=== PATIENT | male | born 1985 | race Two or more races ===

== ENCOUNTER 2025-05-17 00:20 | Emergency (ER) | payer OTHER, MEDICAID, SELFPAY ==
[2025-05-17 00:21] VITALS: BMI 25.1
[2025-05-17 00:31] VITALS: BP 149/84; PULSE 63; RESP 18; TEMP 37.2; O2SAT 99
--- NOTE | 2025-05-17 00:40 | XR_ITS ---
Examination: CT abdomen and pelvis without contrast. Coronal 3-D reconstructions. Sagittal 2-D reconstructions. Date and time of exam:May 17, 2025 0315 hours Comparison January 12, 2021 INDICATIONS: Onset left-sided flank pain today. CTDI: vol (mGy): 9.08. DLP: (mGycm): 402. Technique: Axial images of the abdomen have been obtained, 3 mm slice thickness Intravenous contrast material has not been administered. Low dose protocols were performed. One or more of the following dose reduction techniques were used; automated exposure control, adjustment of the mA and/or KV according to patient size, use of iterative reconstruction technique. Findings: No focal liver or splenic lesions Contracted gallbladder No pancreatic mass Mild left hydronephrosis secondary to 3 mm mid left ureteral calculus No bowel obstruction Normal appendix No bladder mass or bladder calculi IMPRESSION: Mild left hydronephrosis secondary to 3 mm mid left ureteral calculus
[2025-05-17 01:18] LABS: Basophils # (Auto) 0.0 Thou/mm3 (0.0-0.2); Basophils % (Auto) 0 % (0-2.5); Eosinophils # (Auto) 0.1 Thou/mm3 (0.0-0.5); Eosinophils % (Auto) 1 % (0-10); Hematocrit 45.2 % (41.0-53.0); Hemoglobin 15.0 g/dL (13.5-16.0); Immature Granulocytes Auto 0.06 Thou/mm3 (0.00-0.00); Lymphocytes # (Auto) 2.0 Thou/mm3 (1.0-4.8); Lymphocytes % (Auto) 20 % (10-50); Mean Corpuscular HGB Conc 33.2 g/dl (31.0-37.0); Mean Corpuscular Hemoglobin 28.4 pg (25.0-35.0); Mean Corpuscular Volume 86 fL (80-100); Monocytes # (Auto) 0.6 Thou/mm3 (0.0-0.8); Monocytes % (Auto) 6 % (0-12); Neutrophils # (Auto) 7.5 Thou/mm3 (1.8-7.7); Neutrophils % (Auto) 73 % (37-80); Nucleated Red Blood Cell # 0.00 Thou/mm3 (0.00-0.00); Nucleated Red Blood Cell % 0 /100 WBC (0); Platelet Count 222 Thou/mm3 (140-440); RDW Standard Deviation 41.7 fL (35.1-43.9); Red Blood Count 5.28 Miln/mm3 (4.50-5.90); White Blood Count 10.3 Thou/mm3 (3.8-10.6)
[2025-05-17 01:36] LABS: Alanine Aminotransferase 87 U/L (10-49); Albumin, Serum 4.4 gm/dL (3.5-5.0); Albumin/Globulin Ratio 1.7 (1.2-2.2); Alkaline Phosphatase 137 U/L (46-116); Anion Gap 13 (7-16); Aspartate Amino Transferase 41 U/L (0-34); BUN/Creatinine Ratio 13 Ratio (12-20); Bilirubin,Total 0.2 mg/dL (0.3-1.2); Blood Urea Nitrogen 12 mg/dL (9-23); Calcium 10.0 mg/dL (8.3-10.6); Calcium (Corrected) 10.0 mg/dL (8.5-10.1); Carbon Dioxide 24.1 mMol/L (20.0-31.0); Chloride 106 mMol/L (98-107); Creatinine (Component) 0.9 mg/dL (0.6-1.3); Estimated Creatinine Clearance 110.2 mL/min (>60); Globulin 2.6 gm/dL (2.3-3.5); Glucose 184 mg/dL (74-106); Lipase 25 U/L (12-53); Osmolality,Calculated 289 (275-295); Potassium 4.0 mMol/L (3.4-5.1); Sodium 143 mMol/L (136-145); Total Protein 7.0 gm/dL (5.7-8.2); eGFR > 60 See Note
--- NOTE | 2025-05-17 04:24 | PRELIM_ITS ---
CT scan of the abdomen and pelvis without intravenous contrast (axial sections with sagittal and coronal reformats) May 17, 2025 0319 hours Clinical History: Kidney stone. Comparison: No prior study is available for comparison. Findings: A small hypodense lesion is noted in the liver, which is too small to characterize. There is a 3 mm obstructing calculus in the left proximal ureter (coronal image 74/147) causing moderate left hydroureteronephrosis and periureteric/perinephric fat stranding. The gallbladder, pancreas, spleen, right kidney and adrenals are unremarkable on this noncontrast study. No evidence of bowel obstruction. The appendix is within normal limits (coronal images [id number]). There is no mesenteric or retroperitoneal adenopathy. The urinary bladder is partially distended and shows mild wall thickening; possibility of cystitis cannot be excluded. There is no free fluid or free air. There are bilateral inguinal hernia containing fat. The osseous structures are unremarkable. Right basilar dependent atelectasis is present. Please note that evaluation of soft tissue/vascular structures and bowel loops is limited due to absence of IV and oral contrast. Impression: 1. A 3 mm obstructing calculus in the left proximal ureter causing moderate left hydroureteronephrosis. 2. Partially distended urinary bladder with mild wall thickening; possibility of cystitis cannot be excluded. 3. Other findings as described above. Suggest clinical correlation and follow up accordingly. Report Electronically Signed By: Steven De La Cruz 05/17/2025 4:24:12 AM [EST]
--- NOTE | 2025-05-17 04:34 | EDNOTE_ITS ---
ED Abdominal Pain RME/HPI General Chief Complaint: Abdominal Pain Stated complaint: L FLANK PAIN Time seen by provider: 05/17/25 00:23 Arrival date/time: 05/17/25 00:20 This is a case of 39-year-old male with history of kidney stone came in in the emergency room due to left flank pain radiating to the left lower abdomen for 1 day associated with nausea vomiting persistence of the symptoms this patient decided to sought consult here in the emergency Limitations: no limitations Related Data Previous Rx's ?Medication ?Instructions ?Recorded ondansetron 4 mg disintegrating 4 mg PO Q8H PRN nausea and 08/12/23 tablet vomiting #20 tabs cyclobenzaprine 10 mg tablet 10 mg PO BID PRN muscle s pasm #20 10/20/23 tabs ibuprofen 800 mg tablet 800 mg PO Q8H PRN pain #30 t abs 10/20/23 cephalexin 500 mg capsule 500 mg PO QID #40 caps 05/17 hydrocodone 5 mg-acetaminophen 325 1 tab PO Q6H PRN pa in #20 tabs 05/17/25 mg tablet ondansetron 4 mg disintegrating 4 mg PO Q8H PRN nausea and 05/17/25 tablet vomiting #20 tabs tamsulosin 0.4 mg capsule (Flomax) 0.4 mg PO QDAY 10 d ays #10 caps 05/17/25 Allergies Allergy/AdvReac Type Severity Reaction Status Date / Time No Known Allergies Allergy Verified 05/17/25 00:24 Review of Systems Review of Systems Systems Reviewed: All systems reviewed, normal except as documented Constitutional Constitutional: Reports system reviewed and no additional complaints, except as documented, Reports as per HPI, Denies chills and Denies fever(s) ENT Ears, Nose, Mouth, and Throat: Denies dysphagia and Denies odynophagia Cardiovascular Cardiovascular: Reports system reviewed and no additional complaints, except as documented, Reports as per HPI, Denies chest pain and Denies dyspnea Respiratory Respiratory: Reports system reviewed and no additional complaints, except as documented, Reports as per HPI and Denies dyspnea Gastrointestinal Gastrointestinal: Reports system reviewed and no additional complaints, except as documented, Reports as per HPI, Reports abdominal pain, Denies belching, Denies bloating, Denies change in bowel habits, Denies change in stool character, Denies coffee ground emesis, Denies constipation, Denies cramping, Denies diarrhea, Denies dyspepsia, Denies dysphagia, Denies early satiety, Denies excessive flatus, Denies fecal incontinence, Denies heartburn, Denies hematemesis, Denies hematochezia, Denies loose stools, Denies melena, Reports nausea, Denies odynophagia, Denies tenesmus and Reports vomiting Genitourinary Genitourinary: Reports system reviewed and no additional complaints, except as documented and Reports as per HPI Musculoskeletal Musculoskeletal: Reports system reviewed and no additional complaints, except as documented and Reports as per HPI Neurologic Neurologic: Reports system reviewed and no additional complaints, except as documented and Reports as per HPI Past Medical History Past Medical History NEUROLOGIC: Negative Neurological Disorders or Seizures CARDIAC: Negative Cardiac Disorders or Congestive Heart Failure RESPIRATORY: Negative Chronic Obstructive Pulmonary Disease (COPD) GASTROINTESTINAL: Negative Gastrointestinal Disorders GENITOURINARY: Negative Genitourinary Disorders or Renal Disease MUSCULOSKELETAL: Negative Musculoskeletal Disorders ENDOCRINE: Negative Endocrine Disorders, Diabetes Mellitus Type 1 or Diabetes Mellitus Type 2 HEMATOLOGIC: Negative Blood Disorders OTHER HISTORY: Negative Autoimmune Disease, Shingles, Blood Transfusions, Anesthesia Reactions, MRSA, Clostridium Difficile or Cancer Family History FAMILY HISTORY: Negative Family Psychiatric Problems, Family Respiratory Disorders, Family Cardiac Disorders, Family Gastrointestinal Problems, Family Cancer, Family Surgery or Family Anesthesia Reaction Social History SMOKING STATUS: Never smoker ED Exam General Limitations: Present no limitations General appearance: Present alert, in no apparent distress and other (Patient is awake alert oriented not in distress nontoxic looking well-hydrated well- nourished) Head Head exam: Present atraumatic, normocephalic and normal inspection Eye Eye exam: Present normal appearance, PERRL and EOMI ENT ENT exam: Present normal exam, normal oropharynx and mucous membranes moist Neck Neck exam: Present normal inspection, full ROM and trachea midline; Absent tenderness, meningismus, lymphadenopathy or thyromegaly Chest Chest inspection: Present normal inspection and symmetric chest wall rise; Absent tenderness, rash or abscess Respiratory Respiratory exam: Present normal lung sounds bilaterally; Absent respiratory distress, wheezes, stridor, accessory muscle use or prolonged expiratory phase Cardiovascular Cardiovascular exam: Present regular rate, normal rhythm and normal heart sounds; Absent bradycardia, tachycardia, irregular rhythm, systolic murmur or diastolic murmur Abdominal Exam Abdominal exam: Present soft, tenderness (Mild tenderness in the left lower quadrant and left lower), normal bowel sounds and other (No CVA tenderness no bladder tenderness); Absent distention, guarding, rebound, rigidity, diminished bowel sounds, hyperactive bowel sounds, hypoactive bowel sounds, organomegaly, trauma, psoas sign, obturator sign, Betancourt's sign, Rovsing's sign, tenderness at McBurney's Point or hernia Extremities Exam Extremities exam: Present normal inspection and full ROM Back Exam Back exam: Present normal inspection and full ROM Neurological Exam Neurological exam: Present alert, oriented X3, CN II-XII intact, normal gait and reflexes normal; Absent motor sensory deficit Psychiatric Psychiatric exam: Present normal affect and normal mood Skin Skin exam: Present warm, dry, intact and normal color Course Quality Measures none Orders Category Date Time Status Insert IV NOW Care 05/17/25 05:[address] abdomen pelvis wo con Stat Exams 05/17/25 00:40 Completed CBC Stat Lab 05/17/25 01:02 Completed Comprehensive Metabolic Panel Stat Lab 05/17/25 01:02 Completed Lipase Stat Lab 05/17/25 01:02 Completed Ketorolac Inj [Toradol Inj] Med 05/17/25 04:30 Discontinued 30 mg IVP X1 ONE Morphine Inj Med 05/17/25 04:30 Discontinued 4 mg IVP X1 ONE Ondansetron Inj [Zofran Inj] Med 05/17/25 04:31 Discontinued 4 mg IVP X1 ONE Sodium Chloride 0.9% 1000 ml [Ns] 1,000 ml Med 05/17/25 04:30 Discontinued IV 999 mls/hr Tamsulosin HCl [Flomax] Med 05/17/25 04:30 Discontinued 0.4 mg PO X1 ONE Vital Signs Vital signs: Vital Signs Temperature 99.0 F 05/17/25 00:31 Pulse Rate 63 05/17/25 00:31 Respiratory Rate 18 05/17/25 00:31 Blood Pressure 149/84 H 05/17/25 00:31 Pulse Oximetry (%) 99 05/17/25 00:31 Oxygen Delivery Method Room Air 05/17/25 00:31 Patient is afebrile not tachycardic not tachypneic BP stable not hypoxic oxygen saturation 99% in room air Abdominal Pain MDM MDM Narrative MDM Narrative:: This is a case of 39-year-old male with history of kidney stone came in in the emergency room due to left flank pain radiating to the left lower abdomen for 1 day associated with nausea vomiting persistence of the symptoms this patient decided to sought consult here in the emergency physical examination patient is awake alert oriented not in distress not toxic looking well-hydrated well- nourished patient abdominal exam noted mild tenderness on the left lower quadrant and left flank no guarding no rebound no rigidity negative CVA tenderness no bladder tenderness at the time of exam no signs and symptoms of sepsis dehydration or acute abdomen blood exam showed CBC no leukocytosis no anemia kidney and liver function is normal no electrolyte imbalance urinalysis is normal CT scan showed a mild hydronephrosis with secondary to 3 mm left ureteral calculus based on my physical examination I do not think patient needs to be admitted nor transfer the stone is small and not infected thus patient was given a bolus of normal saline Flomax morphine and Toradol for pain and Zofran for vomiting after 1 hour patient was reassessed patient condition markedly improved pain was resolved no recurrence of vomiting patient will be discharged with [place] for pain Zofran for vomiting and cephalexin for possible infection I have a long discussion with the patient she was advised to follow-up with PCP to be referred to urologist for further evaluation and treatment of kidney stone he is advised if not seen in 2 days return to the emergency room immediately or call 911 return precaution to ER was also advised Patient was discharged with comfortable condition walking with stable gait. Patient verbalized no further complains explained diagnosis and answered patient question. Patient is comfortable with the proposed management plan including the need to follow up with his/her primary care physician and any specialist if applicable Discussed patient for any urgent condition or worsening sx, He/She needed to go to emergency room immediately or call 911. Patient acknowledge the responsibility to follow up as instructed and to monitor her/his symptoms. For any persistence of the symptoms for more than 3-5 days return precaution advised. Discussed the result of the test and was given printed discharge instruction Patient data External records reviewed:: [facility] previous records Clinical information provided by:: patient and family Social determinants that could affect healthcare access:: none Patient has the following chronic illnesses:: None How is presenting disease/condition affected by chronic disease/condition?: no chronic disease Evaluation data The following diagnostics were reviewed and interpreted by me:: lab results and radiology exam(s) Lab and/or radiology exams considered but not ordered:: Reviewed Interpretation Summary: Reviewed Medications / Prescriptions Medications or Prescriptions considered but not ordered:: Given Medication administrations:: Medication Administration History Discontinued Medications Sodium Chloride (Ns) 1,000 mls @ 999 mls/hr IV .Q1H1M ONE Stop: 05/17/25 05:30 Last Infusion: 05/17/25 05:28 Dose: Infused Documented By: Admin: 05/17/25 05:08 Dose: 999 mls/hr Documented By: BD Ketorolac Tromethamine (Ketorolac Inj 30 Mg/Ml Vial) 30 mg IVP X1 ONE Stop: 05/17/25 04:31 Last Admin: 05/17/25 05:07 Dose: 30 mg Documented By: BD Morphine Sulfate (Morphine Sulf Inj 10 Mg/Ml Vial) 4 mg IVP X1 ONE Stop: 05/17/25 04:31 Last Admin: 05/17/25 05:08 Dose: 4 mg Documented By: BD Ondansetron HCl (Ondansetron Inj 2 Mg/Ml Inj 2 Ml) 4 mg IVP X1 ONE; Protocol Stop: 05/17/25 04:32 Last Admin: 05/17/25 05:07 Dose: 4 mg Documented By: BD Tamsulosin HCl (Tamsulosin Hcl 0.4 Mg Capsule) 0.4 mg PO X1 ONE Stop: 05/17/25 04:31 Last Admin: 05/17/25 05:09 Dose: 0.4 mg Documented By: BD Given Consultations Consultation(s) initiated? (list below): No Diagnosis Differential diagnosis abdominal pain: abdominal pain, acute appendicitis, calculus of kidney and diverticulitis Most likely diagnosis given after review of the tests above:: Ureteral stone with hydronephrosis Admission Indicated Admission indicated?: not indicated Explain why admission is indicated or not indicated:: Not indicated Admission Request Was there a request for admission?: No Admission Attestation Admission request attestation: Not indicated Disposition Plan Disposition Plan: Discharge Discharge Attestation Discharge Attestation: The patient and all family members were given an opportunity to ask questions and understood the discharge instructions. Discharge instructions specifically effects, indications for sooner follow up or return to the emergency department, and the expected course of current diagnosis. Patient condition: Stable Discharge Plan Plan Patient Disposition: HOME (Self Care) Patient condition on transfer: Stable Prescriptions/Referrals Prescriptions/Med Rec: New hydrocodone-acetaminophen 5-325 mg tablet 1 tab PO Q6H MDD max4 tabs per day PRN (Reason: pain) Qty: 20 0RF tamsulosin [Flomax] 0.4 mg capsule 0.4 mg PO QDAY 10 Days Qty: 10 0RF ondansetron 4 mg tablet,disintegrating 4 mg PO Q8H PRN (Reason: nausea and vomiting) Qty: 20 0RF cephalexin 500 mg capsule 500 mg PO QID Qty: 40 0RF No Action ondansetron 4 mg tablet,disintegrating 4 mg PO Q8H PRN (Reason: nausea and vomiting) Qty: 20 0RF cyclobenzaprine 10 mg tablet 10 mg PO BID PRN (Reason: muscle spasm) Qty: 20 0RF ibuprofen 800 mg tablet 800 mg PO Q8H PRN (Reason: pain) Qty: 30 0RF Referrals: Leanna Sam MD [Physician] - 05/18/25 (For further evaluation and treatment of your ureteral stone with hydroureteronephrosis) Nikko Sage PA-C [Primary Care Provider] - In 1 week Problem List Clinical Impression: Ureteral stone, Hydroureteronephrosis Patient/Caregiver Discharge Instructions Education Materials: Understanding Kidney Stones, Kidney Stones Your Evaluation, Treating Kidney Stones ..., Understanding Hydronephrosis Additional Instructions: Follow-up with your primary care physician in 2 days for reevaluation and to be referred to urologist for further evaluation and treatment of ureteral stone with hydroureteronephrosis recurrence persistent worsening symptoms or any emergent concerns such as fever chills flank pain abdominal pain unable to urinate or blood in the urine return to the emergency room immediately or call 911 take your medication as directed finish the course of antibiotic increase water intake keep hydrated Print Language: Swazi Stand Alone Forms: [facility] Award Info., Patient Portal Info Letter PA/JANINE Supervising Physician PA/JANINE Supervising Physician: Dr Celeste
[2025-05-17] MEDS: KETOROLAC INJ 30 MG/ML VIAL IVP (05:07)
[2025-05-17] MEDS: ONDANSETRON INJ 2 MG/ML INJ 2 ML 4 MG IVP (05:07)
[2025-05-17] MEDS: MORPHINE SULF INJ 10 MG/ML VIAL 4 MG IVP (05:08)
[2025-05-17] MEDS: SODIUM CHLORIDE 0.9% 1000 ML 1,000 ML 999 ML IV (05:08)
[2025-05-17] MEDS: TAMSULOSIN HCL 0.4 MG CAPSULE PO (05:09)
== END 2025-05-17 05:34 | disposition home or self-care (01) ==
PROVIDERS: Nurse Practitioner Family; Emergency Provider Family Medicine; PCP Physician Assistant
DX: N13.2 Hydronephrosis with renal and ureteral calculous obstruction (principal); Z87.442 Personal history of urinary calculi
CPT/HCPCS: 36415; 74176; 80053; 81001; 83690; 85025; 96374; 96375; 99283; J1885; J2270; J2405; J7030; A9270

== ENCOUNTER → 2025-07-24 | Outpatient (CLI) | payer BC, MEDICAID, SELFPAY ==
--- NOTE | 2025-07-24 10:45 | XR_ITS ---
Examination: Shoulder, left, 3 views Technique: Shoulder AP internal rotation, AP external rotation, Y view shoulder, 3 views Exam date and time : July 24, 2025, 1055 hours INDICATIONS: Left shoulder surgery 2 years ago followed by shoulder pain and popping FINDINGS: Advanced narrowing glenohumeral joint No shoulder fracture or dislocation No calcific tendinitis IMPRESSION: Advanced narrowing glenohumeral joint
[2025-07-24 10:57] LABS: Basophils # (Auto) 0.0 Thou/mm3 (0.0-0.2); Basophils % (Auto) 1 % (0-2.5); Eosinophils # (Auto) 0.1 Thou/mm3 (0.0-0.5); Eosinophils % (Auto) 1 % (0-10); Hematocrit 50.2 % (41.0-53.0); Hemoglobin 16.8 g/dL (13.5-16.0); Immature Granulocytes Auto 0.01 Thou/mm3 (0.00-0.00); Lymphocytes # (Auto) 2.3 Thou/mm3 (1.0-4.8); Lymphocytes % (Auto) 36 % (10-50); Mean Corpuscular HGB Conc 33.5 g/dl (31.0-37.0); Mean Corpuscular Hemoglobin 28.2 pg (25.0-35.0); Mean Corpuscular Volume 84 fL (80-100); Monocytes # (Auto) 0.5 Thou/mm3 (0.0-0.8); Monocytes % (Auto) 7 % (0-12); Neutrophils # (Auto) 3.5 Thou/mm3 (1.8-7.7); Neutrophils % (Auto) 56 % (37-80); Nucleated Red Blood Cell # 0.00 Thou/mm3 (0.00-0.00); Nucleated Red Blood Cell % 0 /100 WBC (0); Platelet Count 223 Thou/mm3 (140-440); RDW Standard Deviation 40.3 fL (35.1-43.9); Red Blood Count 5.95 Miln/mm3 (4.50-5.90); White Blood Count 6.4 Thou/mm3 (3.8-10.6)
[2025-07-24 11:07] LABS: Glucose Estimated Average 128 mg/dL (80-131); Hemoglobin A1C 6.1 % Hgb (4.8-6.0)
[2025-07-24 11:21] LABS: Folate 15.73 ng/mL (>5.38); Vitamin B12 464 pg/mL (211-911); Vitamin D 25 Hydroxy Total 25.2 ng/mL (7.3-40.2)
[2025-07-24 11:22] LABS: Alanine Aminotransferase 79 U/L (10-49); Albumin, Serum 5.2 gm/dL (3.5-5.0); Albumin/Globulin Ratio 1.9 (1.2-2.2); Alkaline Phosphatase 92 U/L (46-116); Anion Gap 10 (7-16); Aspartate Amino Transferase 40 U/L (0-34); BUN/Creatinine Ratio 16 Ratio (12-20); Bilirubin,Total 0.7 mg/dL (0.3-1.2); Blood Urea Nitrogen 14 mg/dL (9-23); Calcium 9.7 mg/dL (8.3-10.6); Calcium (Corrected) 9.7 mg/dL (8.5-10.1); Carbon Dioxide 27.0 mMol/L (20.0-31.0); Cardiac Risk Estimate 4.6 RATIO (4.0-6.7); Chloride 106 mMol/L (98-107); Cholesterol 237 mg/dL (132-200); Creatinine (Component) 0.9 mg/dL (0.6-1.3); Free T4 (Free Thyroxine) 1.33 ng/dL (0.89-1.76); Globulin 2.7 gm/dL (2.3-3.5); Glucose 106 mg/dL (74-106); HDL Cholesterol 52 mg/dL (40-60); LDL Cholesterol,Calculated 166 mg/dL (0-130); Osmolality,Calculated 285 (275-295); Potassium 4.4 mMol/L (3.4-5.1); Sodium 143 mMol/L (136-145); Thyroid Stimulating Hormone 0.85 uIU/mL (0.55-4.78); Total Protein 7.9 gm/dL (5.7-8.2); Triglycerides 94 mg/dL (30-150); eGFR > 60 See Note
[2025-07-24 11:43] LABS: Collection Type, Urine Clean Catch
[2025-07-24 12:31] LABS: Bacteria,Urine Rare; Bilirubin,Urine Negative (Negative); Blood,Urine Negative (Negative); Clarity,Urine Clear (Clear/Hazy); Color,Urine Lt-Yellow (Lt Yel-Yel); Glucose, Urine Negative (Negative); Hyaline Casts,Urine < 1 /hpf (0-1); Ketones,Urine Negative (Negative); Leukocyte Esterase,Urine Negative (Negative); Nitrite,Urine Negative (Negative); PH,Urine 6.0 (5.0-7.0); Protein,Urine Trace (Neg - Trace); RBC,Urine 3 /hpf (0-3); Specific Gravity,Urine 1.031 (1.001-1.035); Squamous Epithelial Cell,Urine 1 /hpf (0-5); Urobilinogen,Urine Negative mg/dL (0.0-1.0); WBC,Urine 3 /hpf (0-5)
[2025-07-24 12:40] LABS: Creatinine MALB Rnd Ur 206 mg/dL (30-125); Microalbumin Creat Ratio 4 mg/gCrea (<30); Microalbumin, Random Urine 9 mg/L (0-300)
[2025-07-24 18:35] LABS: Chlamydia trachomatis PCR Negative (Not Detect); Neisseria Gonorrhoeae DNA PCR Negative (Not Detect); Trichomonas Negative (Negative)
== END | disposition home or self-care (01) ==
LOC: COPL 10:10
PROVIDERS: PCP Nurse Practitioner Family; Referring Provider Nurse Practitioner Family; Visit Provider Radiology Diagnostic Radiology
DX: M25.812 Other specified joint disorders, left shoulder (principal); Z00.01 Encounter for general adult medical examination with abnormal findings; Z83.3 Family history of diabetes mellitus; Z82.49 Family history of ischemic heart disease and other diseases of the circulatory system
CPT/HCPCS: 36415; 73030; 80053; 80061; 81001; 82043; 82306; 82570; 82607; 82746; 83036; 84439; 84443; 85025; 87491; 87591; 87661

== ENCOUNTER → 2025-09-28 | Outpatient (CLI) | payer MEDICAID, SELFPAY ==
--- NOTE | 2025-09-28 09:05 | XR_ITS ---
Examination: Foot, left, 3 views Technique: AP, oblique, lateral views foot, 3 views Date and time of exam: September 28, 2025, 0912 hours INDICATIONS: Injury to the foot 1 week ago, foot pain. FINDINGS: Mild narrowing first metatarsophalangeal joint No acute fracture No dislocation IMPRESSION: No acute fracture
== END | disposition home or self-care (01) ==
LOC: CDIM 08:32
DX: S99.922A Unspecified injury of left foot, initial encounter (principal); X58.XXXA Exposure to other specified factors, initial encounter
CPT/HCPCS: 73630